=== PATIENT | female | born 1940 | race Caucasian/White ===

== ENCOUNTER → 2016-09-21 | Outpatient (CLI) | payer MEDICARE ==
[~2016-09-21] MED LIST: ASPI325T8 PO; BYSTOLIC5 MG PO; CHLO12TA2 PO; CLON0.2T PO; DICL100G18 TP; DICL100G24 TP; DILT120T3 PO; FENT1PAT13 TP; FENT1PAT89 TP; FURO-68 PO; HYDR1KIT RC; IRBE150T PO; IRBE300T3 PO; OMEP20TA8 PO; OXYC-328 PO; POLY119P4 PO; PROM25TA10 PO; PROM50AM6 IJ; REGADENOSON 0.4 MG/5 ML DISP.SYRIN. IV ONE; VALIUM10 MG PO
--- NOTE | 2016-09-21 11:35 | PCVCIMAG ---
APPROVED REPORT Exam: Nuclear Stress Test Indication: Abnormal EKG, Pre Op Patient Location: Out-Patient Stress Nurse: Princess Ray RN, Loli Beauchamp RN RI Tech:Scott AmosJEAN Ht: 5 ft 0 in Wt: 112 lbs BSA: 1.46 m2 HR: 67 bpm BP: 160/65 mmHg BMI: 21.8 Rhythm: NSR Medical History Medical History: Age, HTN, Former Smoker Medications: ASA, Clonidine, Diltiazem, Furosemide, Irbesartan, Bystolic (held 24 hours) Allergies: Cefepime, Desmopressin, Inderal, Norvasc Pretest Chest Pain Characteristics: No chest pain Exercise History: Sedentary Physical Disabilities: Back Stress Test Details Stress Test: Pharmacologic stress testing performed using 0.4 mg of regadenoson per 5 mL given IV over 10 seconds. Reason for pharmacologic stress test: physical limitation. HR Resting HR: 67 bpmMax Heart Rate (APMHR): 143 bpm Max HR Achieved: 93 bpmTarget HR (85% APMHR): 121 bpm % of APMHR: 65 Recovery HR: 82 bpm BP Resting BP: 160/65 mmHg Max BP: 138/61 mmHg Recovery BP: 130/64 mmHg ECG Resting ECG: Sinus Rhythm Stress ECG: Sinus Rhythm ST Change: Non-ischemic Maximum ST Deviation: 1 mm Arrhythmia: None Recovery ECG: Sinus Rhythm Clinical Reason for Termination: Completed protocol Stress Symptoms: Headache Exercise duration: min 55 sec Exercise capacity: 1.0 METs Angina Score: Non-Limiting Symptoms resolved with caffeine. NM EXAM: Myocardial Perfusion REST/STRESS Imaging Protocol: Rest Tc-99m/Stress Tc-99m 1 day Resting Data Rest SPECT myocardial perfusion imaging was performed in supine position 45 minutes following the intravenous injection of 9.2 mCi of Tc-99m Sestamibi. Time of rest injection: 829 Date: 09/21/2016 Pharmacologic Stress Pharmacologic stress test was performed by injecting Regadenoson 0.4 mg IV push followed by the intravenous injection of 25.5 mCi of Tc-99m Sestamibi. Time of stress injection: 0950 Date: 09/21/2016 The images were gated to evaluate regional wall motion and calculate left ventricular ejection fraction. Study Quality Study: Good Study Data Post stress, the left ventricular ejection was 77%.. SSS: 0 SRS: 0 SDS: 0 TID = 0.96. Perfusion Normal left ventricular perfusion. Normal perfusion on both the stress and rest images. Wall Motion Normal left ventricular wall motion. Clinical Findings: Nondiagnostic EKG Findings: Nonischemic Nuclear Conclusion This study is of low probability for inducible ischemia or prior infarct. Normal global and segmental LV systolic function.
--- NOTE | 2016-09-21 11:40 | PCVCIMAG ---
APPROVED REPORT Study performed: 09/21/2016 07:48:35 EXAM: Comprehensive 2D, Doppler, and color-flow Echocardiogram Patient Location: Echo lab Other Information Study Quality: Good Indications Pre-Op Hypertension, Edema, murmur, abnormal EKG. 2D Dimensions LVEF(%): 52.79 (>50%) IVSd: 9.93 (7-11mm)LVOT Diam: 19.19 (18-24mm) LVDd: 34.99 mm PWd: 7.74 (7-11mm)Ascending Ao: 28.27 (22-36mm) LVDs: 25.74 (25-40mm) Left Atrium: 30.01 (27-40mm) Aortic Root: 27.23 mm LV Single Plane 4CH: 60.92 % LV Single Plane 2CH: 71.20 %Hemphill's LVEF: 66.06 % Volumes Left Atrial Volume (Systole) Single Plane 4CH: 23.58 mLSingle Plane 2CH: 25.60 mL LA ESV Index: 17.00 mL/m2 Aortic Valve AoV Peak Pedro.: 1.57 m/s AO Peak Gr.: 9.84 mmHgLVOT Max P.39 mmHg LVOT Max V: 1.45 m/s BERTO Vmax: 2.67 cm2 Mitral Valve E/A Ratio: 0.9 MV Decel. Time: 175.01 ms MV E Max Pedro.: 0.72 m/s MV A Pedro.: 0.77 m/s IVRT: 148.79 ms Pulmonary Valve PV Peak Gr.: 1.82 mmHg Pulmonary Vein P Vein S: 0.71 m/sP Vein A: 0.32 m/s P Vein D: 0.39 m/sP Vein A Dur.: 65.7 msec P Vein S/D Ratio: 1.82 Tricuspid Valve TR Peak Pedro.: 3.03 m/s TR Peak Gr.: 36.83 mmHg Left Ventricle The left ventricle is normal size. There is normal LV segmental wall motion. There is normal left ventricular wall thickness. Left ventricular systolic function is normal. The left ventricular ejection fraction is within the normal range. LVEF is 55-60%. Grade I - abnormal relaxation pattern. Right Ventricle The right ventricle is normal size. The right ventricular systolic function is normal. Atria The left atrium size is normal. The right atrium size is normal. Aortic Valve The aortic valve is normal in structure. No aortic regurgitation is present. There is no aortic valvular stenosis. Mitral Valve The mitral valve is normal in structure. Trace mitral regurgitation. No evidence of mitral valve stenosis. Tricuspid Valve The tricuspid valve is normal in structure. Mild tricuspid regurgitation. Pulmonary artery pressure is 47mmhg. Pulmonic Valve The pulmonary valve is normal in structure. There is no pulmonic valvular regurgitation. Great Vessels The aortic root is normal in size. IVC is normal in size and collapses with >50% inspiration Pericardium There is no pericardial effusion. <Conclusion> The left ventricle is normal size. Left ventricular systolic function is normal. The right ventricle is normal size. The left atrium size is normal. The right atrium size is normal. The aortic valve is normal in structure. Trace mitral regurgitation. Mild tricuspid regurgitation. Pulmonary artery pressure is 47mmhg.
== END | disposition home or self-care (01) ==
LOC: PCVCIMAG 07:31
PROVIDERS: ATTEND Internal Medicine Cardiovascular Disease
DX: Z01.810 Encounter for preprocedural cardiovascular examination (principal); I08.1 Rheumatic disorders of both mitral and tricuspid valves; R94.31 Abnormal electrocardiogram [ECG] [EKG]; K21.9 Gastro-esophageal reflux disease without esophagitis; I12.9 Hypertensive chronic kidney disease with stage 1 through stage 4 chronic kidney disease, or unspecified chronic kidney disease; N18.3 Chronic kidney disease, stage 3 (moderate); R01.1 Cardiac murmur, unspecified; Z79.82 Long term (current) use of aspirin; Z79.899 Other long term (current) drug therapy; Z88.1 Allergy status to other antibiotic agents; Z88.8 Allergy status to other drugs, medicaments and biological substances; Z85.3 Personal history of malignant neoplasm of breast; Z85.828 Personal history of other malignant neoplasm of skin; Z90.710 Acquired absence of both cervix and uterus; Z87.891 Personal history of nicotine dependence
CPT/HCPCS: 78452; 93017; 93306; A9500; G0463; J2785